=== PATIENT | male | born 1945 | race Caucasian/White ===

== ENCOUNTER 2018-05-17 15:35 | Inpatient (IN) | payer MEDICARE ==
[2018-05-17 16:25] VITALS: BMI 35.6
[2018-05-17] MEDS ORDERED: CHLORPROMAZINE 25MG TABLET PO PRN (18:21)
[2018-05-17] MEDS: HYDROcodone/Acetaminophen 5/325 mg Tablet PO PRN (20:29)
[2018-05-17] MEDS: hydrALAZINE 25 MG TAB PO SCH (20:30)
[2018-05-17] MEDS: Topiramate 25 MG TAB PO SCH (20:31)
[2018-05-17] MEDS: Aspirin 81 mg Enteric Coated Tablet PO SCH (20:31)
--- NOTE | 2018-05-18 02:47 | HP ---
DATE OF ADMISSION: 05/17/2018 PRIMARY CARE PHYSICIAN: Dr. Simon Malik ORTHO: Dr. Russell Larsen. REASON FOR ADMISSION: Skilled rehabilitation in [facility]. HISTORY OF PRESENT ILLNESS: Mr. Cano is a 72-year-old with several months history of progressive left hip pain, thigh and knee pain without significant history of injury. He had progressive pain despite of conservative management including rest, restriction, activities, and use of cane. Overall, pain has affected his daily activities including his ADLs. There was no reported significant relief with the use of Mobic or Tylenol No. 3. The patient underwent left total hip replacement for degenerative arthritis of the left hip at [facility]. as done by Dr Larsen. Patient's postoperative course include post op anemia and post-operative urinary retention requiring insertion of guzman catheter. His postoperative hemoglobin went down from 13.1 to 11.8 with hematocrit of 36.4 from 40.1 on 05/16/18. Patient was deemed appropriate to benefit more from skilled rehabilitation prior to going back to the home environment, thus transferred to [place] skilled unit. Prior to transfer, Guzman catheter was removed and patient has voided. Upon admission to [facility], patient had voided once. When evaluated, patient reports no other issues except for he is about to void again after an hour, for which he did. When examined, patient suddenly screamed and requested to urinate again, but could not make it, thus straight urinary catheterization was done. Staff obtained 600 ml of nilay colored urine. 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 He also had knee replacement in the past.History of urinary retention from previous knee surgery. ALLERGIES: None. CURRENT MEDICATIONS: Citalopram 20 mg p.o. daily, hydralazine 50 mg p.o. b.i.d. , hydrochlorothiazide 25 mg daily, meloxicam 15 mg p.o. daily, metoprolol succinate 100 mg every day, tamsulosin 0.4 mg daily, and topiramate 25 mg p.o. b.i.d., [place] 10/325 mg 1-2 q.6 hours p.r.n. REVIEW OF SYSTEMS: General: Denies fever, chills, reports general weakness and malaise. HEENT: Denies acute visual changes, hearing changes, cold symptoms. Respiratory: Denies cough, sputum production, pain with breathing, wheezing. Cardiovascular: Denies palpitations, chest pain, leg edema, dyspnea on exertion. GI: Denies nausea, vomiting, abdominal pain, diarrhea, constipation. No rectal bleeding. Genitourinary: He does have urinary retention requiring insertion of Guzman catheter. He also does have history of diminished stream and erectile dysfunction per records. Otherwise, no dysuria or hematuria. Neurologic: Denies focal numbness, focal weakness. Reports unsteady gait at this time. Psych: Reports depressive symptoms, anxiety. Denies hallucinations, insomnia. Skin: No rashes, no history of nonhealing ulcer. PHYSICAL EXAMINATION: VITAL SIGNS: Blood pressure 176/80, temperature 98.6, pulse 67, respirations 20 , O2 sats 95% at room air. GENERAL: Patient is awake, alert, oriented x3, not in distress, comfortably resting in bed, interactive. HEENT: Normocephalic, atraumatic. PERRL. Intact EOMI. Anicteric sclerae. Oral mucosa is moist. NECK: Supple. No LAD, no JVD, no bruit. CHEST: Normal excursion, clear to auscultation bilaterally. HEART: RRR. Normal S1 and S2. ABDOMEN: with central obesity, soft, with Normoactive bowel sounds, nontender. Negative CVA tenderness bilaterally. EXTREMITIES: No edema, no cyanosis. NEUROLOGIC: Nonfocal. Unsteady gait. DTRs 2+. PSYCHIATRIC: Appears calm with appropriate demeanor and affect. SKIN: Postoperative site in the left lateral thigh is intact, dry, no wound dehiscence noted, with minimal surrounding erythema, nontender to touch, not warm to touch. No lemuel noted. No signs of infection noted. ASSESSMENT: 1. Physical Deconditioning. 2. General weakness. 3. Status post left total hip replacement secondary to degenerative osteoarthritis of the left hip. 4. Postoperative anemia. 5. Postoperative urinary retention, requiring insertion of indwelling foleycatheter. 6. BPH with obstructive symptoms, 7. Hypertension, 8. Depression, anxiety. 9. Obstructive sleep apnea on CPAP. PLAN: Patient is admitted to Med/Surg for purposes of skilled rehabilitation secondary to general weakness s/p hip surgery that led to deconditioning. PT , OT evaluation and treat. The patient's pain will be managed with p.r.n. narcotics as ordered as well as constipation management. Will continue all her current meds. I will monitor the patient for any medical comorbidities that may interfere with rehab progress. Patient to use CPAP device as per home set up/ Further recommendations depending on the hospital course. Estimated length of stay 2 to 3 weeks. CODE STATUS: Patient reports FULL CODE. MTDD
[2018-05-18 03:18] LABS: Bilirubin Negative (Negative); Blood, Urine Trace (Negative); Clarity Clear (Clear); Glucose, Urine (Dipstick) Negative (Negative); Leukocyte Negative (Negative); Nitrite Negative (Negative); Protein, Urine (Dipstick) 30 mg/dL (Neg-Trace); Specific Gravity, Urine 1.015 (1.005-1.030); Urobilinogen 0.2 mg/dL (0.2-1.0); pH, Urine 8.5 (5.0-9.0)
[2018-05-18 03:36] LABS: Bacteria/HPF None Seen HPF (None Seen); RBC/HPF 0-3 HPF (0-3); Squamous Epithelial 0-3 HPF (0-3); WBC/HPF 0-3 HPF (0-3)
[2018-05-18] MEDS: Hydrochlorothiazide 25 MG TAB PO SCH (09:14)
[2018-05-18] MEDS: Citalopram 20 MG TAB PO SCH (09:14)
[2018-05-18] MEDS: hydrALAZINE 25 MG TAB PO SCH ×2 (09:14→21:21)
[2018-05-18] MEDS: Meloxicam 7.5 MG TAB PO SCH (09:14)
[2018-05-18] MEDS: Aspirin 81 mg Enteric Coated Tablet PO SCH ×2 (09:14→21:22)
[2018-05-18] MEDS: Topiramate 25 MG TAB PO SCH ×2 (09:14→21:22)
[2018-05-18] MEDS: Tamsulosin HCl 0.4 MG CAP PO SCH (09:14)
[2018-05-18] MEDS: HYDROcodone/Acetaminophen 5/325 mg Tablet PO PRN ×2 (13:17→22:32)
[2018-05-18] MEDS: CHLORPROMAZINE 25MG TABLET PO PRN ×2 (16:18→22:31)
[2018-05-19] MEDS: Citalopram 20 MG TAB PO SCH (08:18)
[2018-05-19] MEDS: HYDROcodone/Acetaminophen 5/325 mg Tablet PO PRN (08:18)
[2018-05-19] MEDS: Tamsulosin HCl 0.4 MG CAP PO SCH (08:18)
[2018-05-19] MEDS: Meloxicam 7.5 MG TAB PO SCH (08:19)
[2018-05-19] MEDS: Topiramate 25 MG TAB PO SCH ×2 (08:19→20:02)
[2018-05-19] MEDS: Aspirin 81 mg Enteric Coated Tablet PO SCH ×2 (08:20→20:01)
[2018-05-19] MEDS: Hydrochlorothiazide 25 MG TAB PO SCH (08:20)
[2018-05-19] MEDS: hydrALAZINE 25 MG TAB PO SCH ×2 (08:20→20:02)
[2018-05-19] MEDS: CHLORPROMAZINE 25MG TABLET PO PRN (13:37)
[2018-05-19] MEDS: Metoclopramide HCl 10 MG TAB PO PRN (20:02)
[2018-05-20] MEDS: HYDROcodone/Acetaminophen 5/325 mg Tablet PO PRN ×2 (02:02→21:22)
[2018-05-20] MEDS: Metoclopramide HCl 10 MG TAB PO PRN ×4 (02:02→21:21)
[2018-05-20] MEDS: hydrALAZINE 25 MG TAB PO SCH ×2 (08:18→21:21)
[2018-05-20] MEDS: Aspirin 81 mg Enteric Coated Tablet PO SCH ×2 (08:19→21:21)
[2018-05-20] MEDS: Topiramate 25 MG TAB PO SCH ×2 (08:19→21:22)
[2018-05-20] MEDS: Citalopram 20 MG TAB PO SCH (08:19)
[2018-05-20] MEDS: Meloxicam 7.5 MG TAB PO SCH (08:19)
[2018-05-20] MEDS: Hydrochlorothiazide 25 MG TAB PO SCH (08:20)
[2018-05-20] MEDS: Tamsulosin HCl 0.4 MG CAP PO SCH (08:20)
[2018-05-21] MEDS: Meloxicam 7.5 MG TAB PO SCH ×3 (08:14→08:16)
[2018-05-21] MEDS: Metoclopramide HCl 10 MG TAB PO PRN ×3 (08:14→22:12)
[2018-05-21] MEDS: Topiramate 25 MG TAB PO SCH ×2 (08:16→20:03)
[2018-05-21] MEDS: hydrALAZINE 25 MG TAB PO SCH ×2 (08:17→20:03)
[2018-05-21] MEDS: Citalopram 20 MG TAB PO SCH (08:18)
[2018-05-21] MEDS: Tamsulosin HCl 0.4 MG CAP PO SCH (08:18)
[2018-05-21] MEDS: Aspirin 81 mg Enteric Coated Tablet PO SCH ×2 (08:18→20:03)
[2018-05-21] MEDS: Hydrochlorothiazide 25 MG TAB PO SCH (08:19)
[2018-05-21] MEDS: HYDROcodone/Acetaminophen 5/325 mg Tablet PO PRN (16:12)
[2018-05-22] MEDS: HYDROcodone/Acetaminophen 5/325 mg Tablet PO PRN (01:14)
[2018-05-22] MEDS: hydrALAZINE 25 MG TAB PO SCH ×2 (08:32→20:22)
[2018-05-22] MEDS: Hydrochlorothiazide 25 MG TAB PO SCH (08:32)
[2018-05-22] MEDS: Meloxicam 7.5 MG TAB PO SCH (08:32)
[2018-05-22] MEDS: Metoclopramide HCl 10 MG TAB PO PRN ×2 (08:33→15:58)
[2018-05-22] MEDS: Topiramate 25 MG TAB PO SCH ×2 (08:33→20:23)
[2018-05-22] MEDS: Citalopram 20 MG TAB PO SCH (08:33)
[2018-05-22] MEDS: Aspirin 81 mg Enteric Coated Tablet PO SCH ×2 (08:33→20:23)
[2018-05-22] MEDS: Tamsulosin HCl 0.4 MG CAP PO SCH (08:33)
[2018-05-22] MEDS ORDERED: Melatonin 3 MG TAB PO PRN (20:11)
[2018-05-22] MEDS ORDERED: traZODone HCl 50 MG TAB PO PRN (20:13)
[2018-05-22] MEDS ORDERED: Melatonin 3 MG TAB PO SCH (21:00)
[2018-05-23 07:04] VITALS: TEMP 97.6
[2018-05-23] MEDS: Meloxicam 7.5 MG TAB PO SCH (08:33)
[2018-05-23] MEDS: Aspirin 81 mg Enteric Coated Tablet PO SCH (08:34)
[2018-05-23] MEDS: Tamsulosin HCl 0.4 MG CAP PO SCH (08:34)
[2018-05-23] MEDS: Hydrochlorothiazide 25 MG TAB PO SCH (08:34)
[2018-05-23] MEDS: hydrALAZINE 25 MG TAB PO SCH (08:34)
[2018-05-23] MEDS: Topiramate 25 MG TAB PO SCH (08:34)
[2018-05-23] MEDS: Metoclopramide HCl 10 MG TAB PO PRN (08:34)
[2018-05-23] MEDS: Citalopram 20 MG TAB PO SCH (08:34)
[2018-05-23 08:35] VITALS: BP 174/77
--- NOTE | 2018-05-23 13:44 | DIS ---
DATE OF ADMISSION: 05/17/2018 DATE OF DISCHARGE: 05/23/2018 ATTENDING PHYSICIAN: Laura Sanchez M.D. PRIMARY CARE: Dr. Simon Malik. ORTHO: Dr. Russell Larsen. REASON FOR ADMISSION: Skilled rehabilitation, [facility]. FINAL DIAGNOSES: 1. Physical deconditioning. 2. General weakness. 3. Status post left total hip replacement secondary to severe degenerative osteoarthritis of the left hip. 4. Urinary retention requiring indwelling Logan catheter insertion, status post removal now voiding freely.. 5. Anemia, due to acute blood loss form recent surgical procedure. . 6. Postp op Hiccups 7. BPH with obstructive symptoms. 8. Depression/Anxiety. 9. Hypertension 10. Unsteady gait. 11.Obstructive sleep apnea on CPAP. CODE STATUS: Patient is FULL CODE. MEDICATIONS: Citalopram 20 mg p.o. daily, hydralazine 50 mg p.o. b.i.d., hydrochlorothiazide 25 mg p.o. daily, Meloxicam 50 mg p.o. daily, metoprolol succinate 100 mg daily, tamsulosin 0.4 mg daily, topiramate 25 mg p.o. b.i.d., [place] 10/325 mg 1-2 q.6 hours p.r.n., Reglan 25 mg p.o. q.6 hours p.r.n. CONDITION ON DISCHARGE: Stable. DISPOSITION: Transfer to [facility] in [place] per request. DIET: Low salt, low fat. ACTIVITIES: Uses rolling walker. Further orders from PCP, Dr. Simon Malik once admitted to the skilled unit. HISTORY OF PRESENT ILLNESS AND HOSPITAL COURSE: Mr. Cano is a 72-year-old several month history of progressive pain of the left hip, thigh, and knee without significant reported injury. He has had progressive pain despite of conservative outpatient management including rest, restriction, activities, and use of cane. Overall, pain has affected his daily activities including his ADLs. He has been on Mobic and Tylenol No. 3, but reported no significant relief with pain medications. The patient underwent left total hip replacement on 05/15/2018 for degenerative arthritis of the left hip done by Dr. Russell Larsen . His postoperative hemoglobin went down from 13.1 to 11.8 as of 2017. He was transferred to [facility] on 05/17/2018 for skilled rehabilitation. Postoperative complications included urinary retention requiring reinsertion of indwelling Logan catheter. Prior to discharge, the Logan catheter was removed and patient has voided. During his stay in [facility], patient had been complaining of persistent hiccups that comes and goes. He reports that it has been going on for the last 3 days after the surgery. He had never received any medications from [facility] prior. He was tried on Thorazine this time in skilled rehabilitation, but afforded no relief, and medication was making him more confused. He was tried on Reglan and has reported some improvement. Upon admission in [place], patient was able to void once, but has been complaining of increased frequency and urgency with urinary retention thereafter. Urinary symptoms persisted, requiring Logan catheter insertion. After 3 days of bladder training with the Logan catheter, we were able to the catheter and patient has been voiding freely since. reports that patient had similar episodes in the past, postoperatively ending in the ER for Logan catheter reinsertion. On 05/22/2018, patient requested that he wanted to see back his PCP, Dr. Simon Malik in [place] instead of staying in [place]. Transfer was coordinated with the who confirms patient's wishes thus transfer to [facility] facility was coordinated. As soon as PCP, Dr. Simon Malik accepted the patient's and insurance approval has been confirmed. Patient was discharged on 05/23/2018 to [facility] in [place] per request. PHYSICAL EXAMINATION: VITAL SIGNS: Prior to discharge, BP 189/84. Patient declined repeat vital signs that he really wanted to go. He was asymptomatic. Temperature 97.6, pulse 57, respiration rate 18, O2 sats 94% at room air. GENERAL: Patient is awake, alert, oriented x3, not in distress, comfortable. HEENT: Normocephalic, atraumatic. PERRL intact, EOMI. Anicteric sclerae. Oral mucosa is moist. NECK: Supple. No LAD. CHEST: Normal excursion, clear to auscultation bilaterally. CARDIAC: RRR. ABDOMEN: Obese, soft, normoactive bowel sounds, nondistended, nontender. No rebound, no guarding. EXTREMITIES: No edema, no cyanosis. SKIN: Postoperative site on the left lateral thigh is dry, intact and wound edges are intact, without drainage, signs of infection or surrounding edema. NEUROLOGIC: Nonfocal, spontaneous speech, DTRs 2+. Gait unsteady. Time spent on this discharge 32 minutes in examining the patient, coordinating care and transfer. MARY ANNE
== END 2018-05-23 12:35 | DRG 560 ==
LOC: MADMS 15:57
PROVIDERS: ADMIT Family Medicine; ATTEND Family Medicine
DX: Z47.1 Aftercare following joint replacement surgery (principal); N13.8 Other obstructive and reflux uropathy; R53.1 Weakness; Z96.642 Presence of left artificial hip joint; I10 Essential (primary) hypertension; M19.90 Unspecified osteoarthritis, unspecified site; E66.01 Morbid (severe) obesity due to excess calories; F41.9 Anxiety disorder, unspecified; F32.9 Major depressive disorder, single episode, unspecified; G47.33 Obstructive sleep apnea (adult) (pediatric); N52.9 Male erectile dysfunction, unspecified; D64.9 Anemia, unspecified; N99.89 Other postprocedural complications and disorders of genitourinary system; N40.1 Benign prostatic hyperplasia with lower urinary tract symptoms; R26.81 Unsteadiness on feet; Z68.35 Body mass index [BMI] 35.0-35.9, adult
CPT/HCPCS: 81003; 81015; G8978-GP-CM; G8979-GP-CJ; G8987-GO-CM; G8988-GO-CI

== ENCOUNTER 2022-02-25 14:05 | Inpatient (IN) | payer OTHER ==
[2022-02-25] MEDS ORDERED: Gabapentin 300 MG CAP PO PRN (16:58)
[2022-02-25] MEDS ORDERED: Acetaminophen/Codeine 30-300mg Tablet PO PRN ×2 (16:58→18:49)
[2022-02-25] MEDS ORDERED: Acetaminophen 325 MG TAB PO SCH (18:00)
[2022-02-25] MEDS ORDERED: Acetaminophen 325 MG TAB PO PRN (18:45)
[2022-02-25] MEDS: Gabapentin 100 MG CAP PO SCH (22:15)
[2022-02-25] MEDS: Citalopram 20 MG TAB PO SCH (22:16)
[2022-02-25] MEDS: Donepezil HCl 10 MG TAB PO SCH (22:16)
[2022-02-25] MEDS: Magnesium Oxide 400 MG TAB PO SCH (22:16)
[2022-02-25] MEDS: hydrALAZINE 25 MG TAB PO SCH (22:17)
[2022-02-25] MEDS: Sulfameth/Trimethoprim DS 800-160mg TAB PO SCH (22:17)
[2022-02-25] MEDS: Cholecalciferol 1,000 UNITS (25 MCG) TAB PO SCH (22:18)
[2022-02-25] MEDS: Ascorbic Acid 500 mg Chewable Tablet PO SCH (22:18)
[2022-02-25] MEDS: Aspirin Chewable 81 MG TAB PO SCH (22:18)
[2022-02-25] MEDS: MGOX PO SCH (22:24)
[2022-02-25] MEDS: CALCIUM CIT PO SCH (22:24)
[2022-02-25] MEDS: VIT D3 PO SCH (22:24)
[2022-02-25] MEDS: [UNRECOGNIZED DRUG - OTHER] PO SCH (22:24)
[2022-02-25] MEDS: B6 PO SCH (22:24)
[2022-02-26] MEDS: Ascorbic Acid 500 mg Chewable Tablet PO SCH ×2 (08:58→20:26)
[2022-02-26] MEDS: Floranex 1 GM Packet PO SCH (08:58)
[2022-02-26] MEDS: DULoxetine 30 MG CAP PO SCH (08:59)
[2022-02-26] MEDS: Metolazone 5 MG TAB PO SCH (08:59)
[2022-02-26] MEDS: Cholecalciferol 1,000 UNITS (25 MCG) TAB PO SCH ×2 (08:59→20:26)
[2022-02-26] MEDS: Aspirin Chewable 81 MG TAB PO SCH ×2 (08:59→20:26)
[2022-02-26] MEDS: Sulfameth/Trimethoprim DS 800-160mg TAB PO SCH ×2 (09:00→20:26)
[2022-02-26] MEDS: Febuxostat 40 MG TAB PO SCH (09:00)
[2022-02-26] MEDS: Tamsulosin HCl 0.4 MG CAP PO SCH (09:00)
[2022-02-26] MEDS: Multivit, Therapeutic 1 TAB PO SCH (09:00)
[2022-02-26] MEDS: Polyethylene Glycol 3350 17 GM Packet PO SCH (09:01)
[2022-02-26] MEDS: Enoxaparin Sodium 40 MG/0.4 ML SYRINGE SC SCH (09:01)
[2022-02-26] MEDS: Gabapentin 100 MG CAP PO SCH ×3 (09:01→20:26)
[2022-02-26] MEDS: MGOX PO SCH ×2 (09:02→20:31)
[2022-02-26] MEDS: CALCIUM CIT PO SCH ×2 (09:02→20:31)
[2022-02-26] MEDS: Flaxseed/Omega3,6,9/Fatty Acid [Flax Seed Oil 1,300 Mg Softgel] PO SCH (09:02)
[2022-02-26] MEDS: hydrALAZINE 25 MG TAB PO SCH ×2 (09:02→20:26)
[2022-02-26] MEDS: B6 PO SCH ×2 (09:02→20:31)
[2022-02-26] MEDS: [UNRECOGNIZED DRUG - OTHER] PO SCH ×2 (09:02→20:31)
[2022-02-26] MEDS: VIT D3 PO SCH ×2 (09:02→20:31)
[2022-02-26] MEDS: Donepezil HCl 10 MG TAB PO SCH (20:26)
[2022-02-26] MEDS: Magnesium Oxide 400 MG TAB PO SCH (20:26)
[2022-02-26] MEDS: Citalopram 20 MG TAB PO SCH (20:27)
[2022-02-27] MEDS: Polyethylene Glycol 3350 17 GM Packet PO SCH (08:19)
[2022-02-27] MEDS: Enoxaparin Sodium 40 MG/0.4 ML SYRINGE SC SCH (08:22)
[2022-02-27] MEDS: Cholecalciferol 1,000 UNITS (25 MCG) TAB PO SCH ×2 (08:24→20:05)
[2022-02-27] MEDS: Floranex 1 GM Packet PO SCH (08:24)
[2022-02-27] MEDS: Aspirin Chewable 81 MG TAB PO SCH ×2 (08:24→20:03)
[2022-02-27] MEDS: Tamsulosin HCl 0.4 MG CAP PO SCH (08:25)
[2022-02-27] MEDS: Febuxostat 40 MG TAB PO SCH (08:25)
[2022-02-27] MEDS: Ascorbic Acid 500 mg Chewable Tablet PO SCH ×2 (08:25→20:07)
[2022-02-27] MEDS: DULoxetine 30 MG CAP PO SCH (08:26)
[2022-02-27] MEDS: Metolazone 5 MG TAB PO SCH (08:26)
[2022-02-27] MEDS: hydrALAZINE 25 MG TAB PO SCH ×2 (08:26→20:05)
[2022-02-27] MEDS: Sulfameth/Trimethoprim DS 800-160mg TAB PO SCH ×2 (08:26→20:03)
[2022-02-27] MEDS: Multivit, Therapeutic 1 TAB PO SCH (08:26)
[2022-02-27] MEDS: Flaxseed/Omega3,6,9/Fatty Acid [Flax Seed Oil 1,300 Mg Softgel] PO SCH (08:27)
[2022-02-27] MEDS: MGOX PO SCH ×2 (08:34→22:16)
[2022-02-27] MEDS: B6 PO SCH ×2 (08:34→22:16)
[2022-02-27] MEDS: Gabapentin 100 MG CAP PO SCH ×3 (08:34→20:06)
[2022-02-27] MEDS: VIT D3 PO SCH ×2 (08:34→22:16)
[2022-02-27] MEDS: CALCIUM CIT PO SCH ×2 (08:34→22:16)
[2022-02-27] MEDS: [UNRECOGNIZED DRUG - OTHER] PO SCH ×2 (08:34→22:16)
[2022-02-27] MEDS: Citalopram 20 MG TAB PO SCH (20:03)
[2022-02-27] MEDS: Magnesium Oxide 400 MG TAB PO SCH (20:05)
[2022-02-27] MEDS: Donepezil HCl 10 MG TAB PO SCH (20:07)
[2022-02-28 07:29] LABS: #Basophils 0.1 thou/uL (0.0-0.2); #Eosinphils 0.3 thou/uL (0.0-0.7); #Lymphocytes 1.6 thou/uL (1.20-3.40); #Monocytes 0.6 thou/uL (0.11-0.59); #Neutrophils 4.9 thou/uL (1.40-6.50); %Basophils 1.3 % (0.0-1.0); %Eosinophils 3.6 % (0.0-10.0); %Lymphocytes 21.8 % (21.0-51.0); %Monocytes 7.3 % (0.0-10.0); Hemoglobin 11.7 g/dL (14.0-18.0); Mean Corpuscular HGB CONC 32.7 g/dL (32.0-36.0); Mean Corpuscular Hemoglobin 32.4 pg (27.0-31.0); Mean Corpuscular Volume 99.1 fL (78.0-98.0); Mean Platelet Volume 7.4 fL (7.4-10.4); Platelet Count 183 thou/uL (130-400); RBC Distribution Width 12.6 % (11.5-14.5); Red Blood Cell (RBC) Count 3.61 mill/uL (4.70-6.10); White Blood Cell (WBC) Count 7.5 thou/uL (4.8-10.8)
[2022-02-28 07:39] LABS: ALT (SGPT) 26 U/L (8-55); AST (SGOT) 22 U/L (5-34); Albumin 3.1 g/dL (3.4-4.8); Alkaline Phosphatase 76 U/L (40-110); Anion Gap 13 mmol/L (10-20); BUN (Urea Nitrogen) 38 mg/dL (8.4-25.7); Bilirubin, Total 0.3 mg/dL (0.2-1.2); Calc. Creatinine Clearance 62 mL/min (70-130); Calcium 9.2 mg/dL (7.8-10.44); Carbon Dioxide 30 mmol/L (23-31); Chloride 100 mmol/L (98-107); Estimated GFR 41; Glucose 110 mg/dL (83-110); Potassium 3.8 mmol/L (3.5-5.1); Sodium 139 mmol/L (136-145)
[2022-02-28] MEDS: Floranex 1 GM Packet PO SCH (08:08)
[2022-02-28 08:10] LABS: Globulin 3.6 g/dL (2.4-3.5); Protein, Total 6.7 g/dL (5.8-8.1)
[2022-02-28] MEDS: hydrALAZINE 25 MG TAB PO SCH (08:10)
[2022-02-28] MEDS: Febuxostat 40 MG TAB PO SCH (08:11)
[2022-02-28] MEDS: Aspirin Chewable 81 MG TAB PO SCH ×2 (08:12→20:59)
[2022-02-28] MEDS: Sulfameth/Trimethoprim DS 800-160mg TAB PO SCH ×2 (08:12→21:00)
[2022-02-28] MEDS: Multivit, Therapeutic 1 TAB PO SCH (08:12)
[2022-02-28] MEDS: Ascorbic Acid 500 mg Chewable Tablet PO SCH ×2 (08:12→20:59)
[2022-02-28] MEDS: Cholecalciferol 1,000 UNITS (25 MCG) TAB PO SCH ×2 (08:12→21:00)
[2022-02-28] MEDS: Metolazone 5 MG TAB PO SCH (08:12)
[2022-02-28] MEDS: DULoxetine 30 MG CAP PO SCH (08:12)
[2022-02-28] MEDS: Gabapentin 100 MG CAP PO SCH ×3 (08:12→21:00)
[2022-02-28] MEDS: Tamsulosin HCl 0.4 MG CAP PO SCH (08:12)
[2022-02-28] MEDS: [UNRECOGNIZED DRUG - OTHER] PO SCH (08:13)
[2022-02-28] MEDS: B6 PO SCH (08:13)
[2022-02-28] MEDS: MGOX PO SCH (08:13)
[2022-02-28] MEDS: CALCIUM CIT PO SCH (08:13)
[2022-02-28] MEDS: Enoxaparin Sodium 40 MG/0.4 ML SYRINGE SC SCH (08:13)
[2022-02-28] MEDS: Polyethylene Glycol 3350 17 GM Packet PO SCH (08:13)
[2022-02-28] MEDS: VIT D3 PO SCH (08:13)
[2022-02-28] MEDS: Flaxseed/Omega3,6,9/Fatty Acid [Flax Seed Oil 1,300 Mg Softgel] PO SCH (08:13)
[2022-02-28] MEDS ORDERED: Polyethylene Glycol 3350 17 GM Packet PO PRN (13:22)
[2022-02-28] MEDS: Donepezil HCl 10 MG TAB PO SCH (20:59)
[2022-02-28] MEDS: Citalopram 20 MG TAB PO SCH (20:59)
[2022-02-28] MEDS: Magnesium Oxide 400 MG TAB PO SCH (20:59)
[2022-03-01] MEDS: DULoxetine 30 MG CAP PO SCH (08:14)
[2022-03-01] MEDS: Aspirin Chewable 81 MG TAB PO SCH ×2 (08:14→21:38)
[2022-03-01] MEDS: Gabapentin 100 MG CAP PO SCH ×3 (08:14→21:39)
[2022-03-01] MEDS: Enoxaparin Sodium 40 MG/0.4 ML SYRINGE SC SCH (08:14)
[2022-03-01] MEDS: Metolazone 5 MG TAB PO SCH (08:14)
[2022-03-01] MEDS: Febuxostat 40 MG TAB PO SCH (08:15)
[2022-03-01] MEDS: Sulfameth/Trimethoprim DS 800-160mg TAB PO SCH ×2 (08:15→21:39)
[2022-03-01] MEDS: Tamsulosin HCl 0.4 MG CAP PO SCH (08:15)
[2022-03-01] MEDS: Floranex 1 GM Packet PO SCH (08:15)
[2022-03-01] MEDS: Ascorbic Acid 500 mg Chewable Tablet PO SCH ×2 (08:15→21:39)
[2022-03-01] MEDS: Multivit, Therapeutic 1 TAB PO SCH (08:15)
[2022-03-01] MEDS: Cholecalciferol 1,000 UNITS (25 MCG) TAB PO SCH ×2 (08:16→21:39)
[2022-03-01] MEDS: Citalopram 20 MG TAB PO SCH (21:38)
[2022-03-01] MEDS: Magnesium Oxide 400 MG TAB PO SCH (21:39)
[2022-03-01] MEDS: Donepezil HCl 10 MG TAB PO SCH (21:39)
[2022-03-02] MEDS: Multivit, Therapeutic 1 TAB PO SCH (08:53)
[2022-03-02] MEDS: Aspirin Chewable 81 MG TAB PO SCH ×2 (08:53→21:53)
[2022-03-02] MEDS: Cholecalciferol 1,000 UNITS (25 MCG) TAB PO SCH ×2 (08:53→21:55)
[2022-03-02] MEDS: Febuxostat 40 MG TAB PO SCH (08:53)
[2022-03-02] MEDS: Metolazone 5 MG TAB PO SCH (08:53)
[2022-03-02] MEDS: DULoxetine 30 MG CAP PO SCH (08:53)
[2022-03-02] MEDS: Ascorbic Acid 500 mg Chewable Tablet PO SCH ×2 (08:54→21:55)
[2022-03-02] MEDS: Enoxaparin Sodium 40 MG/0.4 ML SYRINGE SC SCH (08:54)
[2022-03-02] MEDS: Tamsulosin HCl 0.4 MG CAP PO SCH (08:54)
[2022-03-02] MEDS: Sulfameth/Trimethoprim DS 800-160mg TAB PO SCH ×2 (08:54→21:53)
[2022-03-02] MEDS: Gabapentin 100 MG CAP PO SCH ×3 (08:54→21:54)
[2022-03-02] MEDS: Floranex 1 GM Packet PO SCH (08:54)
[2022-03-02] MEDS: Magnesium Oxide 400 MG TAB PO SCH (21:54)
[2022-03-02] MEDS: Citalopram 20 MG TAB PO SCH (21:55)
[2022-03-02] MEDS: Donepezil HCl 10 MG TAB PO SCH (21:55)
[2022-03-03] MEDS: Floranex 1 GM Packet PO SCH (09:13)
[2022-03-03] MEDS: Aspirin Chewable 81 MG TAB PO SCH ×2 (09:15→21:50)
[2022-03-03] MEDS: Tamsulosin HCl 0.4 MG CAP PO SCH (09:15)
[2022-03-03] MEDS: Febuxostat 40 MG TAB PO SCH (09:15)
[2022-03-03] MEDS: DULoxetine 30 MG CAP PO SCH (09:15)
[2022-03-03] MEDS: Metolazone 5 MG TAB PO SCH (09:16)
[2022-03-03] MEDS: Ascorbic Acid 500 mg Chewable Tablet PO SCH ×2 (09:16→21:50)
[2022-03-03] MEDS: Enoxaparin Sodium 40 MG/0.4 ML SYRINGE SC SCH (09:16)
[2022-03-03] MEDS: Gabapentin 100 MG CAP PO SCH ×3 (09:16→21:51)
[2022-03-03] MEDS: Multivit, Therapeutic 1 TAB PO SCH (09:16)
[2022-03-03] MEDS: Cholecalciferol 1,000 UNITS (25 MCG) TAB PO SCH ×2 (09:20→21:50)
[2022-03-03] MEDS: Donepezil HCl 10 MG TAB PO SCH (21:51)
[2022-03-03] MEDS: Magnesium Oxide 400 MG TAB PO SCH (21:51)
[2022-03-03] MEDS: Citalopram 20 MG TAB PO SCH (21:51)
[2022-03-04] MEDS: Acetaminophen 325 MG TAB PO PRN (07:47)
[2022-03-04] MEDS: Cholecalciferol 1,000 UNITS (25 MCG) TAB PO SCH ×2 (07:48→21:18)
[2022-03-04] MEDS: Ascorbic Acid 500 mg Chewable Tablet PO SCH ×2 (07:48→21:20)
[2022-03-04] MEDS: Tamsulosin HCl 0.4 MG CAP PO SCH (07:48)
[2022-03-04] MEDS: Metolazone 5 MG TAB PO SCH (07:48)
[2022-03-04] MEDS: Gabapentin 100 MG CAP PO SCH ×3 (07:49→21:20)
[2022-03-04] MEDS: Enoxaparin Sodium 40 MG/0.4 ML SYRINGE SC SCH (07:49)
[2022-03-04] MEDS: Febuxostat 40 MG TAB PO SCH (07:49)
[2022-03-04] MEDS: Multivit, Therapeutic 1 TAB PO SCH (07:49)
[2022-03-04] MEDS: Aspirin Chewable 81 MG TAB PO SCH ×2 (07:50→21:18)
[2022-03-04] MEDS: Floranex 1 GM Packet PO SCH (07:50)
[2022-03-04] MEDS: DULoxetine 30 MG CAP PO SCH (07:50)
[2022-03-04] MEDS: Donepezil HCl 10 MG TAB PO SCH (21:18)
[2022-03-04] MEDS: Magnesium Oxide 400 MG TAB PO SCH (21:18)
[2022-03-04] MEDS: Citalopram 20 MG TAB PO SCH (21:18)
[2022-03-05] MEDS: Febuxostat 40 MG TAB PO SCH (08:42)
[2022-03-05] MEDS: Gabapentin 100 MG CAP PO SCH ×3 (08:43→21:45)
[2022-03-05] MEDS: Multivit, Therapeutic 1 TAB PO SCH (08:43)
[2022-03-05] MEDS: Ascorbic Acid 500 mg Chewable Tablet PO SCH ×2 (08:43→21:44)
[2022-03-05] MEDS: DULoxetine 30 MG CAP PO SCH (08:43)
[2022-03-05] MEDS: Aspirin Chewable 81 MG TAB PO SCH ×2 (08:43→21:45)
[2022-03-05] MEDS: Metolazone 5 MG TAB PO SCH (08:43)
[2022-03-05] MEDS: Enoxaparin Sodium 40 MG/0.4 ML SYRINGE SC SCH (08:44)
[2022-03-05] MEDS: Tamsulosin HCl 0.4 MG CAP PO SCH (08:45)
[2022-03-05] MEDS: Cholecalciferol 1,000 UNITS (25 MCG) TAB PO SCH ×2 (08:45→21:45)
[2022-03-05] MEDS: Floranex 1 GM Packet PO SCH (08:46)
[2022-03-05] MEDS ORDERED: Nystatin Cream 15 GM TUBE TOP SCH (10:30)
[2022-03-05] MEDS: Citalopram 20 MG TAB PO SCH (21:45)
[2022-03-05] MEDS: Donepezil HCl 10 MG TAB PO SCH (21:45)
[2022-03-05] MEDS: Magnesium Oxide 400 MG TAB PO SCH (21:45)
[2022-03-05] MEDS: Nystatin Cream 15 GM TUBE TOP SCH (21:46)
[2022-03-06] MEDS: Metolazone 5 MG TAB PO SCH ×2 (08:58→09:00)
[2022-03-06] MEDS: Floranex 1 GM Packet PO SCH (08:59)
[2022-03-06] MEDS: Tamsulosin HCl 0.4 MG CAP PO SCH (08:59)
[2022-03-06] MEDS: DULoxetine 30 MG CAP PO SCH (08:59)
[2022-03-06] MEDS: Febuxostat 40 MG TAB PO SCH (08:59)
[2022-03-06] MEDS: Aspirin Chewable 81 MG TAB PO SCH ×2 (08:59→20:29)
[2022-03-06] MEDS: Multivit, Therapeutic 1 TAB PO SCH (09:00)
[2022-03-06] MEDS: Gabapentin 100 MG CAP PO SCH ×3 (09:00→20:25)
[2022-03-06] MEDS: Cholecalciferol 1,000 UNITS (25 MCG) TAB PO SCH ×2 (09:00→20:23)
[2022-03-06] MEDS: Enoxaparin Sodium 40 MG/0.4 ML SYRINGE SC SCH (09:02)
[2022-03-06] MEDS: Nystatin Cream 15 GM TUBE TOP SCH ×2 (09:03→22:18)
[2022-03-06] MEDS: Ascorbic Acid 500 mg Chewable Tablet PO SCH ×2 (09:03→20:27)
[2022-03-06] MEDS: Magnesium Oxide 400 MG TAB PO SCH (20:23)
[2022-03-06] MEDS: Citalopram 20 MG TAB PO SCH (20:26)
[2022-03-06] MEDS: Donepezil HCl 10 MG TAB PO SCH (20:27)
[2022-03-06] MEDS: Acetaminophen 325 MG TAB PO PRN (20:34)
[2022-03-07] MEDS: Enoxaparin Sodium 40 MG/0.4 ML SYRINGE SC SCH (09:13)
[2022-03-07] MEDS: Multivit, Therapeutic 1 TAB PO SCH (09:13)
[2022-03-07] MEDS: Aspirin Chewable 81 MG TAB PO SCH ×2 (09:13→21:16)
[2022-03-07] MEDS: Febuxostat 40 MG TAB PO SCH (09:13)
[2022-03-07] MEDS: Cholecalciferol 1,000 UNITS (25 MCG) TAB PO SCH ×2 (09:14→21:15)
[2022-03-07] MEDS: Floranex 1 GM Packet PO SCH (09:14)
[2022-03-07] MEDS: Gabapentin 100 MG CAP PO SCH ×3 (09:14→21:15)
[2022-03-07] MEDS: DULoxetine 30 MG CAP PO SCH (09:14)
[2022-03-07] MEDS: Metolazone 5 MG TAB PO SCH (09:15)
[2022-03-07] MEDS: Tamsulosin HCl 0.4 MG CAP PO SCH (09:15)
[2022-03-07] MEDS: Ascorbic Acid 500 mg Chewable Tablet PO SCH ×2 (09:15→21:14)
[2022-03-07] MEDS: Nystatin Cream 15 GM TUBE TOP SCH ×2 (09:16→21:16)
[2022-03-07] MEDS: Acetaminophen 325 MG TAB PO PRN (21:14)
[2022-03-07] MEDS: Citalopram 20 MG TAB PO SCH (21:15)
[2022-03-07] MEDS: Magnesium Oxide 400 MG TAB PO SCH (21:15)
[2022-03-07] MEDS: Donepezil HCl 10 MG TAB PO SCH (21:15)
[2022-03-08 05:36] LABS: Hemoglobin 11.6 g/dL (14.0-18.0); Platelet Count 188 thou/uL (130-400)
[2022-03-08] MEDS ORDERED: Acetaminophen/Codeine 30-300mg Tablet PO PRN (06:49)
[2022-03-08] MEDS: Gabapentin 100 MG CAP PO SCH ×3 (09:32→20:39)
[2022-03-08] MEDS: Enoxaparin Sodium 40 MG/0.4 ML SYRINGE SC SCH (09:32)
[2022-03-08] MEDS: Multivit, Therapeutic 1 TAB PO SCH (09:33)
[2022-03-08] MEDS: Febuxostat 40 MG TAB PO SCH (09:33)
[2022-03-08] MEDS: Tamsulosin HCl 0.4 MG CAP PO SCH (09:33)
[2022-03-08] MEDS: DULoxetine 30 MG CAP PO SCH (09:33)
[2022-03-08] MEDS: Metolazone 5 MG TAB PO SCH (09:33)
[2022-03-08] MEDS: Floranex 1 GM Packet PO SCH (09:33)
[2022-03-08] MEDS: Aspirin Chewable 81 MG TAB PO SCH ×2 (09:33→20:39)
[2022-03-08] MEDS: Cholecalciferol 1,000 UNITS (25 MCG) TAB PO SCH ×2 (09:33→20:40)
[2022-03-08] MEDS: Ascorbic Acid 500 mg Chewable Tablet PO SCH ×2 (09:33→20:39)
[2022-03-08] MEDS: Nystatin Cream 15 GM TUBE TOP SCH ×2 (09:34→20:43)
[2022-03-08] MEDS: Magnesium Oxide 400 MG TAB PO SCH (20:39)
[2022-03-08] MEDS: Donepezil HCl 10 MG TAB PO SCH (20:39)
[2022-03-08] MEDS: Citalopram 20 MG TAB PO SCH (20:39)
[2022-03-08] MEDS: Acetaminophen 325 MG TAB PO PRN (20:40)
[2022-03-09 04:24] VITALS: BMI 38.4
[2022-03-09] MEDS ORDERED: Acetaminophen/Codeine 30-300mg Tablet PO PRN (09:25)
[2022-03-09] MEDS: Metolazone 5 MG TAB PO SCH (09:30)
[2022-03-09] MEDS: Enoxaparin Sodium 40 MG/0.4 ML SYRINGE SC SCH (09:30)
[2022-03-09] MEDS: Gabapentin 100 MG CAP PO SCH ×3 (09:31→20:56)
[2022-03-09] MEDS: Cholecalciferol 1,000 UNITS (25 MCG) TAB PO SCH ×2 (09:31→20:56)
[2022-03-09] MEDS: Febuxostat 40 MG TAB PO SCH (09:31)
[2022-03-09] MEDS: Aspirin Chewable 81 MG TAB PO SCH ×2 (09:31→20:56)
[2022-03-09] MEDS: Multivit, Therapeutic 1 TAB PO SCH (09:31)
[2022-03-09] MEDS: DULoxetine 30 MG CAP PO SCH (09:31)
[2022-03-09] MEDS: Nystatin Cream 15 GM TUBE TOP SCH ×2 (09:31→20:58)
[2022-03-09] MEDS: Tamsulosin HCl 0.4 MG CAP PO SCH (09:31)
[2022-03-09] MEDS: Ascorbic Acid 500 mg Chewable Tablet PO SCH ×2 (09:31→20:57)
[2022-03-09] MEDS: Floranex 1 GM Packet PO SCH (09:36)
[2022-03-09] MEDS: Donepezil HCl 10 MG TAB PO SCH (20:56)
[2022-03-09] MEDS: Citalopram 20 MG TAB PO SCH (20:56)
[2022-03-09] MEDS: Magnesium Oxide 400 MG TAB PO SCH (20:58)
[2022-03-10] MEDS: Floranex 1 GM Packet PO SCH (07:49)
[2022-03-10] MEDS: Ascorbic Acid 500 mg Chewable Tablet PO SCH ×2 (08:03→20:37)
[2022-03-10] MEDS: Febuxostat 40 MG TAB PO SCH (08:03)
[2022-03-10] MEDS: Enoxaparin Sodium 40 MG/0.4 ML SYRINGE SC SCH (08:03)
[2022-03-10] MEDS: Tamsulosin HCl 0.4 MG CAP PO SCH (08:04)
[2022-03-10] MEDS: Gabapentin 100 MG CAP PO SCH ×3 (08:04→20:38)
[2022-03-10] MEDS: Cholecalciferol 1,000 UNITS (25 MCG) TAB PO SCH ×2 (08:04→20:37)
[2022-03-10] MEDS: DULoxetine 30 MG CAP PO SCH (08:04)
[2022-03-10] MEDS: Metolazone 5 MG TAB PO SCH (08:04)
[2022-03-10] MEDS: Multivit, Therapeutic 1 TAB PO SCH (08:04)
[2022-03-10] MEDS: Aspirin Chewable 81 MG TAB PO SCH ×2 (08:04→20:37)
[2022-03-10] MEDS: Nystatin Cream 15 GM TUBE TOP SCH ×2 (08:05→20:40)
[2022-03-10] MEDS: Citalopram 20 MG TAB PO SCH (20:37)
[2022-03-10] MEDS: Magnesium Oxide 400 MG TAB PO SCH (20:37)
[2022-03-10] MEDS: Donepezil HCl 10 MG TAB PO SCH (20:37)
[2022-03-10] MEDS: Acetaminophen 325 MG TAB PO PRN (20:39)
[2022-03-11] MEDS: Febuxostat 40 MG TAB PO SCH (08:15)
[2022-03-11] MEDS: Multivit, Therapeutic 1 TAB PO SCH (08:15)
[2022-03-11] MEDS: Aspirin Chewable 81 MG TAB PO SCH ×2 (08:15→21:04)
[2022-03-11] MEDS: Gabapentin 100 MG CAP PO SCH ×3 (08:15→21:05)
[2022-03-11] MEDS: Metolazone 5 MG TAB PO SCH (08:15)
[2022-03-11] MEDS: Tamsulosin HCl 0.4 MG CAP PO SCH (08:15)
[2022-03-11] MEDS: Cholecalciferol 1,000 UNITS (25 MCG) TAB PO SCH ×2 (08:15→21:05)
[2022-03-11] MEDS: DULoxetine 30 MG CAP PO SCH (08:15)
[2022-03-11] MEDS: Ascorbic Acid 500 mg Chewable Tablet PO SCH ×2 (08:15→21:05)
[2022-03-11] MEDS: Floranex 1 GM Packet PO SCH (08:16)
[2022-03-11] MEDS: Enoxaparin Sodium 40 MG/0.4 ML SYRINGE SC SCH (08:16)
[2022-03-11] MEDS: Nystatin Cream 15 GM TUBE TOP SCH ×2 (08:16→21:11)
[2022-03-11] MEDS: Magnesium Oxide 400 MG TAB PO SCH (21:04)
[2022-03-11] MEDS: Citalopram 20 MG TAB PO SCH (21:05)
[2022-03-11] MEDS: Donepezil HCl 10 MG TAB PO SCH (21:05)
[2022-03-12] MEDS: Metolazone 5 MG TAB PO SCH (09:05)
[2022-03-12] MEDS: Febuxostat 40 MG TAB PO SCH (09:05)
[2022-03-12] MEDS: Floranex 1 GM Packet PO SCH (09:05)
[2022-03-12] MEDS: Aspirin Chewable 81 MG TAB PO SCH ×2 (09:05→21:34)
[2022-03-12] MEDS: Gabapentin 100 MG CAP PO SCH ×3 (09:05→21:37)
[2022-03-12] MEDS: Enoxaparin Sodium 40 MG/0.4 ML SYRINGE SC SCH (09:05)
[2022-03-12] MEDS: Tamsulosin HCl 0.4 MG CAP PO SCH (09:06)
[2022-03-12] MEDS: Ascorbic Acid 500 mg Chewable Tablet PO SCH ×2 (09:06→21:34)
[2022-03-12] MEDS: Cholecalciferol 1,000 UNITS (25 MCG) TAB PO SCH ×2 (09:06→21:34)
[2022-03-12] MEDS: DULoxetine 30 MG CAP PO SCH (09:06)
[2022-03-12] MEDS: Nystatin Cream 15 GM TUBE TOP SCH ×2 (09:06→21:36)
[2022-03-12] MEDS: Multivit, Therapeutic 1 TAB PO SCH (09:06)
[2022-03-12] MEDS: Citalopram 20 MG TAB PO SCH (21:35)
[2022-03-12] MEDS: Magnesium Oxide 400 MG TAB PO SCH (21:36)
[2022-03-12] MEDS: Donepezil HCl 10 MG TAB PO SCH (21:36)
[2022-03-13] MEDS: Febuxostat 40 MG TAB PO SCH (10:02)
[2022-03-13] MEDS: Aspirin Chewable 81 MG TAB PO SCH ×2 (10:02→20:49)
[2022-03-13] MEDS: Tamsulosin HCl 0.4 MG CAP PO SCH (10:03)
[2022-03-13] MEDS: Gabapentin 100 MG CAP PO SCH ×3 (10:03→20:51)
[2022-03-13] MEDS: Metolazone 5 MG TAB PO SCH (10:03)
[2022-03-13] MEDS: Floranex 1 GM Packet PO SCH (10:03)
[2022-03-13] MEDS: Cholecalciferol 1,000 UNITS (25 MCG) TAB PO SCH ×2 (10:04→20:50)
[2022-03-13] MEDS: Multivit, Therapeutic 1 TAB PO SCH (10:04)
[2022-03-13] MEDS: Ascorbic Acid 500 mg Chewable Tablet PO SCH ×2 (10:04→20:49)
[2022-03-13] MEDS: Enoxaparin Sodium 40 MG/0.4 ML SYRINGE SC SCH (10:04)
[2022-03-13] MEDS: Nystatin Cream 15 GM TUBE TOP SCH ×2 (10:04→20:53)
[2022-03-13] MEDS: DULoxetine 30 MG CAP PO SCH (10:04)
[2022-03-13] MEDS: Donepezil HCl 10 MG TAB PO SCH (20:49)
[2022-03-13] MEDS: Magnesium Oxide 400 MG TAB PO SCH (20:50)
[2022-03-13] MEDS: Citalopram 20 MG TAB PO SCH (20:51)
[2022-03-14 07:54] LABS: Anion Gap 13 mmol/L (10-20); BUN (Urea Nitrogen) 27 mg/dL (8.4-25.7); Calc. Creatinine Clearance 73 mL/min (70-130); Calcium 9.3 mg/dL (7.8-10.44); Carbon Dioxide 31 mmol/L (23-31); Chloride 100 mmol/L (98-107); Estimated GFR 50; Glucose 92 mg/dL (83-110); Sodium 140 mmol/L (136-145)
[2022-03-14 08:01] LABS: Hemoglobin 12.3 g/dL (14.0-18.0); Mean Corpuscular HGB CONC 31.8 g/dL (32.0-36.0); Mean Corpuscular Hemoglobin 31.7 pg (27.0-31.0); Mean Corpuscular Volume 99.7 fL (78.0-98.0); Mean Platelet Volume 7.7 fL (7.4-10.4); Platelet Count 176 thou/uL (130-400); RBC Distribution Width 13.6 % (11.5-14.5); Red Blood Cell (RBC) Count 3.87 mill/uL (4.70-6.10); White Blood Cell (WBC) Count 6.6 thou/uL (4.8-10.8)
[2022-03-14] MEDS: Aspirin Chewable 81 MG TAB PO SCH ×2 (08:14→21:30)
[2022-03-14] MEDS: Gabapentin 100 MG CAP PO SCH ×3 (08:14→21:30)
[2022-03-14] MEDS: Metolazone 5 MG TAB PO SCH (08:14)
[2022-03-14] MEDS: Floranex 1 GM Packet PO SCH (08:14)
[2022-03-14] MEDS: Tamsulosin HCl 0.4 MG CAP PO SCH (08:14)
[2022-03-14] MEDS: Ascorbic Acid 500 mg Chewable Tablet PO SCH ×2 (08:15→21:30)
[2022-03-14] MEDS: Multivit, Therapeutic 1 TAB PO SCH (08:15)
[2022-03-14] MEDS: Cholecalciferol 1,000 UNITS (25 MCG) TAB PO SCH ×2 (08:15→21:31)
[2022-03-14] MEDS: Febuxostat 40 MG TAB PO SCH (08:15)
[2022-03-14] MEDS: DULoxetine 30 MG CAP PO SCH (08:15)
[2022-03-14] MEDS: Enoxaparin Sodium 40 MG/0.4 ML SYRINGE SC SCH (08:15)
[2022-03-14] MEDS: Nystatin Cream 15 GM TUBE TOP SCH ×2 (08:16→21:29)
[2022-03-14] MEDS: Magnesium Oxide 400 MG TAB PO SCH (21:30)
[2022-03-14] MEDS: Donepezil HCl 10 MG TAB PO SCH (21:30)
[2022-03-14] MEDS: Acetaminophen 325 MG TAB PO PRN (21:31)
[2022-03-15] MEDS: Multivit, Therapeutic 1 TAB PO SCH (08:04)
[2022-03-15] MEDS: Ascorbic Acid 500 mg Chewable Tablet PO SCH ×2 (08:04→21:57)
[2022-03-15] MEDS: Tamsulosin HCl 0.4 MG CAP PO SCH (08:04)
[2022-03-15] MEDS: DULoxetine 30 MG CAP PO SCH (08:04)
[2022-03-15] MEDS: Febuxostat 40 MG TAB PO SCH (08:04)
[2022-03-15] MEDS: Metolazone 5 MG TAB PO SCH (08:04)
[2022-03-15] MEDS: Cholecalciferol 1,000 UNITS (25 MCG) TAB PO SCH ×2 (08:05→21:57)
[2022-03-15] MEDS: Floranex 1 GM Packet PO SCH (08:05)
[2022-03-15] MEDS: Aspirin Chewable 81 MG TAB PO SCH ×2 (08:05→21:57)
[2022-03-15] MEDS: Gabapentin 100 MG CAP PO SCH ×3 (08:05→21:57)
[2022-03-15] MEDS: Enoxaparin Sodium 40 MG/0.4 ML SYRINGE SC SCH (08:06)
[2022-03-15] MEDS: Nystatin Cream 15 GM TUBE TOP SCH ×2 (08:07→21:56)
[2022-03-15] MEDS: Magnesium Oxide 400 MG TAB PO SCH (21:57)
[2022-03-15] MEDS: Donepezil HCl 10 MG TAB PO SCH (21:57)
[2022-03-15] MEDS: Acetaminophen 325 MG TAB PO PRN (21:58)
[2022-03-16] MEDS: Febuxostat 40 MG TAB PO SCH (09:53)
[2022-03-16] MEDS: Metolazone 5 MG TAB PO SCH (09:53)
[2022-03-16] MEDS: Floranex 1 GM Packet PO SCH (09:53)
[2022-03-16] MEDS: DULoxetine 30 MG CAP PO SCH (09:54)
[2022-03-16] MEDS: Ascorbic Acid 500 mg Chewable Tablet PO SCH ×2 (09:54→21:25)
[2022-03-16] MEDS: Gabapentin 100 MG CAP PO SCH ×3 (09:54→21:24)
[2022-03-16] MEDS: Tamsulosin HCl 0.4 MG CAP PO SCH (09:54)
[2022-03-16] MEDS: Enoxaparin Sodium 40 MG/0.4 ML SYRINGE SC SCH (09:54)
[2022-03-16] MEDS: Aspirin Chewable 81 MG TAB PO SCH ×2 (09:54→21:24)
[2022-03-16] MEDS: Multivit, Therapeutic 1 TAB PO SCH (09:54)
[2022-03-16] MEDS: Cholecalciferol 1,000 UNITS (25 MCG) TAB PO SCH ×2 (09:54→21:24)
[2022-03-16] MEDS: Nystatin Cream 15 GM TUBE TOP SCH ×2 (09:55→21:23)
[2022-03-16] MEDS: Magnesium Oxide 400 MG TAB PO SCH (21:23)
[2022-03-16] MEDS: Donepezil HCl 10 MG TAB PO SCH (21:24)
[2022-03-16] MEDS: Acetaminophen 325 MG TAB PO PRN (21:25)
[2022-03-17] MEDS: Febuxostat 40 MG TAB PO SCH (08:10)
[2022-03-17] MEDS: Floranex 1 GM Packet PO SCH (08:10)
[2022-03-17] MEDS: DULoxetine 30 MG CAP PO SCH (08:11)
[2022-03-17] MEDS: Tamsulosin HCl 0.4 MG CAP PO SCH (08:11)
[2022-03-17] MEDS: Aspirin Chewable 81 MG TAB PO SCH ×2 (08:11→21:10)
[2022-03-17] MEDS: Ascorbic Acid 500 mg Chewable Tablet PO SCH ×2 (08:11→21:10)
[2022-03-17] MEDS: Gabapentin 100 MG CAP PO SCH ×3 (08:11→21:10)
[2022-03-17] MEDS: Metolazone 5 MG TAB PO SCH (08:11)
[2022-03-17] MEDS: Multivit, Therapeutic 1 TAB PO SCH (08:11)
[2022-03-17] MEDS: Cholecalciferol 1,000 UNITS (25 MCG) TAB PO SCH ×2 (08:11→21:10)
[2022-03-17] MEDS: Enoxaparin Sodium 40 MG/0.4 ML SYRINGE SC SCH (08:12)
[2022-03-17] MEDS: Nystatin Cream 15 GM TUBE TOP SCH ×2 (08:23→21:14)
[2022-03-17] MEDS: Acetaminophen 325 MG TAB PO PRN ×3 (08:23→21:10)
[2022-03-17] MEDS: Donepezil HCl 10 MG TAB PO SCH (21:09)
[2022-03-17] MEDS: Magnesium Oxide 400 MG TAB PO SCH (21:09)
[2022-03-18] MEDS: Febuxostat 40 MG TAB PO SCH (08:46)
[2022-03-18] MEDS: Cholecalciferol 1,000 UNITS (25 MCG) TAB PO SCH (08:47)
[2022-03-18] MEDS: Floranex 1 GM Packet PO SCH (08:47)
[2022-03-18] MEDS: Ascorbic Acid 500 mg Chewable Tablet PO SCH (08:47)
[2022-03-18] MEDS: Metolazone 5 MG TAB PO SCH (08:47)
[2022-03-18] MEDS: Gabapentin 100 MG CAP PO SCH ×2 (08:47→14:03)
[2022-03-18] MEDS: Tamsulosin HCl 0.4 MG CAP PO SCH (08:47)
[2022-03-18] MEDS: Multivit, Therapeutic 1 TAB PO SCH (08:47)
[2022-03-18] MEDS: DULoxetine 30 MG CAP PO SCH (08:47)
[2022-03-18] MEDS: Aspirin Chewable 81 MG TAB PO SCH (08:47)
[2022-03-18] MEDS: Enoxaparin Sodium 40 MG/0.4 ML SYRINGE SC SCH (08:48)
[2022-03-18] MEDS: Acetaminophen 325 MG TAB PO PRN (08:48)
[2022-03-18] MEDS: Nystatin Cream 15 GM TUBE TOP SCH (08:48)
[2022-03-18 09:21] VITALS: BP 120/67; TEMP 98
== END 2022-03-18 15:00 | disposition home or self-care (01) | DRG 552 ==
LOC: MADMS 14:53
PROVIDERS: ADMIT Family Medicine; ATTEND Family Medicine
DX: M48.061 Spinal stenosis, lumbar region without neurogenic claudication (principal); N39.0 Urinary tract infection, site not specified; G89.29 Other chronic pain; F03.90 Unspecified dementia, unspecified severity, without behavioral disturbance, psychotic disturbance, mood disturbance, and anxiety; E66.01 Morbid (severe) obesity due to excess calories; E03.9 Hypothyroidism, unspecified; N40.0 Benign prostatic hyperplasia without lower urinary tract symptoms; Z96.659 Presence of unspecified artificial knee joint; R33.8 Other retention of urine; I89.0 Lymphedema, not elsewhere classified; Z66 Do not resuscitate; N18.30 Chronic kidney disease, stage 3 unspecified; D63.1 Anemia in chronic kidney disease; K59.00 Constipation, unspecified; I12.9 Hypertensive chronic kidney disease with stage 1 through stage 4 chronic kidney disease, or unspecified chronic kidney disease; L30.8 Other specified dermatitis; R53.81 Other malaise; F32.A Depression, unspecified; F41.9 Anxiety disorder, unspecified; Z20.822 Contact with and (suspected) exposure to COVID-19; M54.16 Radiculopathy, lumbar region; Z79.82 Long term (current) use of aspirin; Z79.899 Other long term (current) drug therapy; Z86.73 Personal history of transient ischemic attack (TIA), and cerebral infarction without residual deficits; Z98.890 Other specified postprocedural states; Z68.38 Body mass index [BMI] 38.0-38.9, adult
CPT/HCPCS: 36415; 80048; 80053; 82728; 85014; 85018; 85025; 85027; 85049; J1650; U0003; U0005

== ENCOUNTER 2022-03-20 13:05 | Emergency (ER) | payer OTHER ==
[2022-03-20 14:09] LABS: #Basophils 0.1 thou/uL (0.0-0.2); #Eosinphils 0.3 thou/uL (0.0-0.7); #Monocytes 0.8 thou/uL (0.11-0.59); #Neutrophils 4.7 thou/uL (1.40-6.50); %Eosinophils 3.5 % (0.0-10.0); %Lymphocytes 24.9 % (21.0-51.0); %Monocytes 10.4 % (0.0-10.0); %Neutrophils 60.2 % (42.0-75.0); Hemoglobin 12.2 g/dL (14.0-18.0); Mean Corpuscular Hemoglobin 32.3 pg (27.0-31.0); Mean Corpuscular Volume 97.9 fL (78.0-98.0); Mean Platelet Volume 7.4 fL (7.4-10.4); Platelet Count 130 thou/uL (130-400); RBC Distribution Width 13.5 % (11.5-14.5); Red Blood Cell (RBC) Count 3.79 mill/uL (4.70-6.10); White Blood Cell (WBC) Count 7.9 thou/uL (4.8-10.8)
[2022-03-20 14:28] LABS: ALT (SGPT) 24 U/L (8-55); AST (SGOT) 19 U/L (5-34); Albumin 3.4 g/dL (3.4-4.8); Alkaline Phosphatase 76 U/L (40-110); Anion Gap 14 mmol/L (10-20); BUN (Urea Nitrogen) 27 mg/dL (8.4-25.7); Bilirubin, Total 0.5 mg/dL (0.2-1.2); Calc. Creatinine Clearance 0 mL/min (70-130); Calcium 9.8 mg/dL (7.8-10.44); Carbon Dioxide 34 mmol/L (23-31); Chloride 98 mmol/L (98-107); Estimated GFR 49; Globulin 3.7 g/dL (2.4-3.5); Glucose 93 mg/dL (83-110); Potassium 4.1 mmol/L (3.5-5.1); Protein, Total 7.1 g/dL (5.8-8.1); Sodium 142 mmol/L (136-145)
[2022-03-20 14:57] LABS: Bilirubin Negative (Negative); Blood, Urine Small (Negative); Clarity Cloudy (Clear); Glucose, Urine (Dipstick) Negative (Negative); Ketone, Urine Negative (Negative); Leukocyte Large (Negative); Nitrite Positive (Negative); Protein, Urine (Dipstick) 30 mg/dL (Neg-Trace); Specific Gravity, Urine 1.015 (1.005-1.030); Urobilinogen 0.2 mg/dL (Less than 2)
[2022-03-20 14:59] LABS: Bacteria/HPF 2+ HPF (None Seen); RBC/HPF 0-3 HPF (0-3); Squamous Epithelial 0-3 HPF (0-3); WBC/HPF Greater Than 50 HPF (0-3)
[2022-03-20] MEDS ORDERED: Sodium Chloride 0.9% 100 ML ONE (16:03)
[2022-03-20] MEDS ORDERED: cefTRIAXone\\ROCEPHIN 2 GM VIAL ONE (16:03)
== END 2022-03-20 17:05 | disposition short-term general hospital (02) ==
LOC: MADERS 13:05
DX: N39.0 Urinary tract infection, site not specified (principal); R00.1 Bradycardia, unspecified; R53.1 Weakness; I45.2 Bifascicular block; I10 Essential (primary) hypertension; Z86.73 Personal history of transient ischemic attack (TIA), and cerebral infarction without residual deficits; Z87.891 Personal history of nicotine dependence; Z79.82 Long term (current) use of aspirin; Z79.899 Other long term (current) drug therapy
CPT/HCPCS: 36415; 51701; 71045; 80053; 81003; 81015; 84443; 84484; 85025; 87040; 87077; 87086; 87186; 93005; 94760; 96365; J0696; J3490